=== PATIENT | female | born 1960 | race Caucasian/White ===

== ENCOUNTER 2023-04-24 01:30 | Emergency (ER) | payer MEDICARE ==
[2023-04-24] MEDS ORDERED: Lidocaine 1% (PF) 30 ML VIAL ONE (01:48)
[2023-04-24] MEDS ORDERED: Boostrix 0.5 ML (Tdap) VIAL (>/=7 yrs of age) ONE (02:04)
== END 2023-04-24 03:20 | disposition home or self-care (01) ==
LOC: ERS 01:30
DX: Z89.422 Acquired absence of other left toe(s) (principal)
CPT/HCPCS: 90471; 90715; J2001

== ENCOUNTER 2024-04-18 10:02 | Outpatient (CLI) | payer MEDICARE | END 2024-04-18 10:03 | disposition home or self-care (01) | LOC: BICCT 10:02 | PROVIDERS: ATTEND Physician Assistant | DX: R22.0 Localized swelling, mass and lump, head (principal); M79.89 Other specified soft tissue disorders; C41.9 Malignant neoplasm of bone and articular cartilage, unspecified; R90.0 Intracranial space-occupying lesion found on diagnostic imaging of central nervous system | CPT/HCPCS: 70450; 70480 ==